=== PATIENT | female | born 1950 | race African-American/Black ===

== ENCOUNTER 2021-05-11 15:03 | Inpatient (IN) | payer MEDICARE, MEDICAID ==
[~2021-05-11] VITALS: Ht 152.4 cm; Wt 76.2 kg
[~2021-05-11 15:03] MED LIST: ACET-3161 PO; ALLO300T2 PO; ASPI-1497 PO; CALC0.5C PO; CALC667C PO; FOLI-43 PO; FOLI0.8T23 PO; GABA-532 PO; OMEP20CA14 PO; SEVE800T8 PO
[2021-05-11] MEDS ORDERED: ALBUTEROL (0.083%) 2.5MG/3ML NEB HHN STA (15:36)
[2021-05-11] MEDS ORDERED: NITROGLYCERIN OINT 1GM/INCH UDPKT TD ONE (15:45)
[2021-05-11] MEDS ORDERED: LABETALOL HCL 20MG/4ML CARPUJECT IV ONE (15:45)
[2021-05-11 15:49] LABS: BASOPHILS % 1.2 % (0.0-2.0); EOSINOPHILS % 2.7 % (0.0-5.0); HEMATOCRIT. 29.1 % (36.0-48.0); HEMOGLOBIN. 10.2 g/dL (12.0-16.0); LYMPHOCYTES % 16.1 % (20.0-50.0); MEAN CORPUSCULAR HEMOGLOBIN 33.1 pg (28.0-32.0); MEAN PLATELET VOLUME 7.7 fl (7.4-10.4); MONOCYTES % 12.5 % (2.0-8.0); NEUTROPHILS % 67.5 % (40.0-76.0); PLATELET 202 x1000/uL (130-400); RED BLOOD CELL COUNT 3.09 mill/uL (4.2-5.4); RED CELL DISTRIBUTION WIDTH 13.8 % (11.6-14.6)
[2021-05-11 15:54] LABS: CHLORIDE 92 mEq/L (98-107)
[2021-05-11] MEDS ORDERED: LABETALOL 5MG/ML SYR 20 MG/4 ML SYRINGE IV SCH (16:15)
[2021-05-11 16:42] LABS: BG BASE EXCESS 1.7 mmol/L (-2.0-2.0); BG CARBOXYHEMOGLOBIN 0.1 % (0.5-1.5); BG DEOXYHEMOGLOBIN 5.2 % (0.0-5.0); BG FRACTION INSPIRED OXYGEN 28; BG HCO3 ACT 24.9 mmol/L (22.0-26.0); BG METHEMOGLOBIN 0.2 % (0.0-1.5); BG OXYGEN SATURATION 94.8 % (92.0-98.5); BG OXYHEMOGLOBIN 94.5 % (94.0-97.0); BG PCO2 33.7 mmHg (35.0-45.0); BG PH 7.486 (7.350-7.450); BG PO2 73.1 mmHg (75.0-100.0); BG SAMPLE SITE RIGHT BRACHIAL; BG TOTAL HEMOGLOBIN 10.1 g/dL (12.0-18.0); BG VENT MODE NASAL CANNULA
[2021-05-11] MEDS ORDERED: DOXYCYCLINE 100MG in DEXTROSE 5% WATER 100ML IV SCH (17:15)
[2021-05-11] MEDS ORDERED: CEFTRIAXONE 1 G PREMIX 50 ML IV SCH (17:15)
[2021-05-11] MEDS ORDERED: DOXYCYCLINE HYCLATE 100 MG/VIAL IV ONE (17:15)
[2021-05-11] MEDS ORDERED: KETOROLAC 30MG/ML VIAL IV ONE (18:15)
[2021-05-11] MEDS ORDERED: HYDROCODONE/ACETAMINOPHEN 5/325MG TABLET PO ONE (20:00)
[2021-05-11] MEDS ORDERED: CLONIDINE 0.1MG TABLET PO PRN (22:00)
[2021-05-11] MEDS ORDERED: ACETAMINOPHEN 325MG TABLET PO PRN (22:00)
[2021-05-11] MEDS ORDERED: LABETALOL 5MG/ML SYR 20 MG/4 ML SYRINGE IV PRN (22:00)
[2021-05-11 22:21] LABS: HEPATITIS B SURFACE ANTIGEN NEGATIVE
[2021-05-11 23:35] VITALS: BP 168/97
[2021-05-12 00:14] VITALS: BP 168/97
[2021-05-12 04:00] VITALS: BP 136/80
[2021-05-12] MEDS ORDERED: HYDR20TA24 PO (04:51)
[2021-05-12] MEDS ORDERED: FOLI1TAB87 PO (04:51)
[2021-05-12] MEDS ORDERED: DIAZ10TA4 PO (04:51)
[2021-05-12] MEDS ORDERED: DIPH50CA4 PO (04:51)
[2021-05-12] MEDS ORDERED: POTA25TA8 PO (04:51)
[2021-05-12] MEDS ORDERED: HYDR-4134 PO (04:51)
[2021-05-12] MEDS ORDERED: FERR325T6 PO (04:51)
[2021-05-12] MEDS ORDERED: FURO40TA5 PO (04:51)
[2021-05-12] MEDS ORDERED: CETI10TA6 PO (04:51)
[2021-05-12] MEDS ORDERED: FLUD0.1T PO (04:51)
[2021-05-12] MEDS ORDERED: AMLO10TA80 PO (04:51)
[2021-05-12] MEDS ORDERED: LUBI24CA5 PO (04:51)
[2021-05-12] MEDS ORDERED: GEMF600T90 PO (04:51)
[2021-05-12] MEDS ORDERED: GABA-532 PO (04:51)
[2021-05-12] MEDS ORDERED: CARI350T27 PO (04:51)
[2021-05-12] MEDS ORDERED: DOCU250C19 PO (04:51)
[2021-05-12 07:16] LABS: BASOPHILS % 0.6 % (0.0-2.0); EOSINOPHILS % 4.1 % (0.0-5.0); HEMATOCRIT. 24.1 % (36.0-48.0); HEMOGLOBIN. 8.4 g/dL (12.0-16.0); LYMPHOCYTES % 21.2 % (20.0-50.0); MEAN CORPUSCULAR HEMOGLOBIN 33.2 pg (28.0-32.0); MEAN CORPUSCULAR VOLUME 94.8 fL (81.0-99.0); MEAN PLATELET VOLUME 7.7 fl (7.4-10.4); MONOCYTES % 14.9 % (2.0-8.0); NEUTROPHILS % 59.2 % (40.0-76.0); PLATELET 186 x1000/uL (130-400); RED BLOOD CELL COUNT 2.54 mill/uL (4.2-5.4); RED CELL DISTRIBUTION WIDTH 13.9 % (11.6-14.6)
[2021-05-12] MEDS ORDERED: OXYCODONE HCL 5MG TABLET PO PRN (07:30)
[2021-05-12 08:00] VITALS: BP 155/83
[2021-05-12] MEDS: ASPIRIN 81MG EC TABLET PO SCH (09:37)
[2021-05-12] MEDS ORDERED: DIPHENHYDRAMINE 50MG/ML VIAL IV NR (10:45)
[2021-05-12 12:00] VITALS: BP 154/90
[2021-05-12] MEDS ORDERED: MORPHINE SULFATE 2 MG/ML CPJ (NOT FOR IM USE) IV PRN (13:00)
[2021-05-12] MEDS ORDERED: NALOXONE HCL 0.4MG/ML VIAL IV PRN (13:00)
[2021-05-12 16:00] VITALS: BP 156/88
[2021-05-12] MEDS ORDERED: HYDROCODONE/ACETAMINOPHEN 10/325MG TABLET PO PRN (19:00)
[2021-05-12 20:00] VITALS: BP 143/72
[2021-05-12] MEDS ORDERED: EPOETIN ALFA-EPBX 10,000 UNIT/ML VIAL SUBCUT SCH (21:00)
[2021-05-12] MEDS: HYDRALAZINE HCL 25MG TABLET PO SCH (21:12)
[2021-05-12] MEDS: DIAZEPAM 5 MG TABLET PO SCH (21:12)
[2021-05-13] VITALS: BP 132/63
[2021-05-13 04:00] VITALS: BP 149/84
[2021-05-13 08:15] VITALS: BP 160/92
[2021-05-13 08:23] LABS: HEMATOCRIT 26.9 % (36.0-48.0); HEMOGLOBIN 9.1 g/dL (12.0-16.0); MEAN CORPUSCULAR HEMOGLOBIN 32.4 pg (28.0-32.0); MEAN CORPUSCULAR VOLUME 96.3 fL (81.0-99.0); PLATELET 188 x1000/uL (130-400); RED BLOOD CELL COUNT 2.79 mill/uL (4.2-5.4); RED CELL DISTRIBUTION WIDTH 14.3 % (11.6-14.6)
[2021-05-13] MEDS: DIAZEPAM 5 MG TABLET PO SCH (08:24)
[2021-05-13] MEDS: ASPIRIN 81MG EC TABLET PO SCH (08:25)
[2021-05-13] MEDS: HYDRALAZINE HCL 25MG TABLET PO SCH (08:25)
[2021-05-13 08:50] LABS: PHOSPHORUS 3.6 mg/dL (2.5-4.9)
[2021-05-13] MEDS ORDERED: ALLOPURINOL 300 MG TABLET PO SCH (09:00)
[2021-05-13] MEDS ORDERED: AMLODIPINE 10MG TABLET PO SCH (09:00)
[2021-05-13 12:05] VITALS: BP 138/78
[2021-05-13 14:13] VITALS: BP 138/78
[2021-05-13 16:39] VITALS: BP 143/72
== END 2021-05-13 19:45 | disposition home or self-care (01) | DRG 291 ==
LOC: ER 15:03 → 6WST 20:50 → EDBEDREQTM 20:55 → EDBEDREQ 20:55 → ENRESERV 22:41
PROVIDERS: ADMIT Internal Medicine; ATTEND Internal Medicine
PROC: 5A1D70Z Performance of Urinary Filtration, Intermittent, Less than 6 Hours Per Day (ICD-10-PCS; principal; 2021-05-11)
DX: I13.2 Hypertensive heart and chronic kidney disease with heart failure and with stage 5 chronic kidney disease, or end stage renal disease (principal); J96.01 Acute respiratory failure with hypoxia; N18.6 End stage renal disease; I50.43 Acute on chronic combined systolic (congestive) and diastolic (congestive) heart failure; N13.2 Hydronephrosis with renal and ureteral calculous obstruction; E78.5 Hyperlipidemia, unspecified; F17.210 Nicotine dependence, cigarettes, uncomplicated; J44.9 Chronic obstructive pulmonary disease, unspecified; M10.9 Gout, unspecified; M19.90 Unspecified osteoarthritis, unspecified site; Z20.822 Contact with and (suspected) exposure to COVID-19; F32.A Depression, unspecified; F41.9 Anxiety disorder, unspecified; D64.9 Anemia, unspecified; Z71.6 Tobacco abuse counseling; Z90.49 Acquired absence of other specified parts of digestive tract; Z99.2 Dependence on renal dialysis; F11.11 Opioid abuse, in remission
CPT/HCPCS: 36415; 36600; 71045; 80048; 80053; 82375; 82805; 83735; 83880; 84100; 84145; 84484; 85025; 85027; 86705; 86709; 86803; 87340; 87426; 93005; 93306; 99285; J0696; J0885; J1200; J1885; J3490; J7060